=== PATIENT | female | born 2005 | race African-American/Black ===

== ENCOUNTER 2024-01-03 06:41 | Emergency (ER) | payer OTHER, SELFPAY ==
[2024-01-03 06:51] VITALS: BP 115/76; PULSE 86; RESP 15; TEMP 36.3; O2SAT 100
[2024-01-03] MEDS: KETOROLAC 30 MG/ML VIAL (*BKC) IM (07:37)
[2024-01-03 07:46] LABS: Strep Group A RT-PCR NOT DETECTED (Negative)
--- NOTE | 2024-01-03 07:50 | ED.GENADULT ---
HPI - General Adult General Chief complaint: Headache Stated complaint: headache and sore throat for two days Time Seen by Provider: 01/03/24 07:01 History of Present Illness HPI narrative: Patient is a 18-year-old female who presents ER with frontal headache. Throbbing. Ongoing for 2 days. Improved with ibuprofen then returns. Associated with sinus congestion. Also has sore throat. No fevers or chills or sweats. No known sick contacts. Related Data Allergies Allergy/AdvReac Type Severity Reaction Status Date / Time NKDA, NO LATEX Allergy Mild Unknown Uncoded 01/03/24 06:54 Review of Systems Constitutional: Constitutional: Reports no additional constitutional complaints ENT: Reports nasal congestion and Reports sore throat Cardiovascular: Cardiovascular: Reports no additional cardiovascular complaints Respiratory: Respiratory: Reports no additional respiratory complaints Neurologic: Reports headache(s), Denies focal weakness and Denies numbness PMFSH Past Medical History Medical History (Updated 01/03/24 @ 09:04 by Nishant Niño MD) Healthy female adult Surgical History Surgical History (Updated 01/03/24 @ 07:51 by Nishant Niño MD) No history of previous surgery Exam Narrative: GENERAL: Well-appearing, well-nourished, and in no acute distress. HEAD: Normocephalic, atraumatic. ENT: Mucous membranes moist. mild pharyngeal erythema. TMs nonbulging bilaterally, small amount of cerumen in ear canal bilaterally. CHEST: Clear to auscultation. No respiratory distress. HEART: Regular rate and rhythm. Normal peripheral pulses. EXTREMITIES: Normal range of motion. No edema. SKIN: Warm, dry, no rash. NEURO: Alert and oriented x3. PSYCH: Normal mood and affect. Course Course Emergency Course: Headache resolved with Toradol. Informed results. Discharge home with supportive care. Vital Signs Vital signs: Vital Signs Temperature 97.4 F L 01/03/24 06:51 Pulse Rate 86 01/03/24 06:51 Respiratory Rate 15 01/03/24 06:51 Blood Pressure 115/76 01/03/24 06:51 Pulse Oximetry 100 01/03/24 06:51 Oxygen Delivery Room Air 01/03/24 06:51 Temperature 97.4 F L 01/03/24 06:51 Pulse Rate 86 01/03/24 06:51 Respiratory Rate 15 01/03/24 06:51 Blood Pressure 115/76 01/03/24 06:51 Pulse Oximetry 100 01/03/24 06:51 Oxygen Delivery Room Air 01/03/24 06:51 Medical Decision Making Vital Signs Vital Signs: Vital Signs Temperature 97.4 F L 01/03/24 06:51 Pulse Rate 86 01/03/24 06:51 Respiratory Rate 15 01/03/24 06:51 Blood Pressure 115/76 01/03/24 06:51 Pulse Oximetry 100 01/03/24 06:51 Oxygen Delivery Room Air 01/03/24 06:51 Temperature 97.4 F L 01/03/24 06:51 Pulse Rate 86 01/03/24 06:51 Respiratory Rate 15 01/03/24 06:51 Blood Pressure 115/76 01/03/24 06:51 Pulse Oximetry 100 01/03/24 06:51 Oxygen Delivery Room Air 01/03/24 06:51 Lab Data Labs: Lab Results 01/03/24 01/03/24 Range/Units 06:56 07:57 Influenza A (RT-PCR) Negative (Negative) Influenza B (RT-PCR) Negative (Negative) RSV (RT-PCR) Negative (Negative) SARS-CoV-2 RNA (RT-PCR) Negative (Negative) Group A Strep (PCR) Not detected (Negative) Discharge Plan Discharge Clinical Impression: Headache, URI (upper respiratory infection) Patient Disposition: Home, Self-Care Condition: Stable Instructions: Upper Respiratory Infection (DC) Additional Instructions: As discussed you have a viral illness. Unfortunately there are no specific medications we can give you to make the illness end faster. Antibiotics do not work for viral illnesses. However, you can take Acetaminophen or Ibuprofen to help with fevers and pain. Stay well hydrated and rested. Return to the emergency department if your fevers and chills continue to worse after 5 days, if you develop worsening cough with thick sputum, or are un
[2024-01-03 09:00] LABS: Influenza A QL RT-PCR Negative (Negative); Influenza B QL RT-PCR Negative (Negative); RSV RNA, RT-PCR Negative (Negative); SARS-CoV-2 RNA PCR Negative (Negative)
[2024-01-03 09:14] VITALS: BP 111/74; PULSE 71; RESP 16; O2SAT 100
== END 2024-01-03 09:15 | disposition home or self-care (01) ==
PROVIDERS: Preventive Medicine Aerospace Medicine; Emergency Provider Emergency Medicine
DX: R51.9 Headache, unspecified (principal); J06.9 Acute upper respiratory infection, unspecified; Z20.822 Contact with and (suspected) exposure to COVID-19
CPT/HCPCS: 87637; 87651; 96372; 99283; J1885